=== PATIENT | female | born 1930 | race Caucasian/White ===

== ENCOUNTER 2017-01-21 05:13 | Inpatient (IN) | payer OTHER, MEDICARE ==
[2017-01-06 13:08] LABS: URINE BILIRUBIN NEGATIVE (Negative); URINE BLOOD NEGATIVE (Negative); URINE COLOR YELLOW; URINE GLUCOSE-RANDOM* NEGATIVE (Negative); URINE KETONES NEGATIVE (Negative); URINE LEUKOCYTES-REFLEX NEGATIVE (Negative); URINE PROTEIN (DIPSTICK) NEGATIVE (Negative)
[2017-01-06 13:09] LABS: HEMATOCRIT 38.7 % (37.0-47.0); HEMOGLOBIN 12.6 gm/dL (12.0-15.0); MCH 26.4 pg (26.0-34.0); MCHC 32.6 g/dL (28.0-37.0); MCV 81.1 fL (80.0-100.0); RBC 4.77 mil/uL (4.20-5.00); RDW 14.5 % (10.5-14.5); WBC 10.4 thou/uL (4.0-11.0)
[2017-01-06 13:22] LABS: ALBUMIN 3.9 g/dL (3.4-5.0); CALCIUM 9.2 mg/dL (8.5-10.1); CREATININE 1.2 mg/dL (0.6-1.3); POTASSIUM 3.7 mmol/L (3.5-5.1); PROTIME 10.5 Seconds (9.3-11.4)
[2017-01-21] VITALS (8 sets, daily range): BP systolic 104–147; BP diastolic 45–84
[~2017-01-21] VITALS: Ht 165.1 cm; Wt 76.7 kg
--- NOTE | ~2017-01-21 | HC ---
[facility] [address] [place] [address] CONSULTATION Name: VIRGINIA FONSECA Room #: 545-P ADM IN M.R.#: [id number] Admission: 01/21/17 Attend Phys: Joaquin Rainey MD Discharge: Date of : 30 Report #: [id number] THIS REPORT FOR: //name// CC: Naren Rainey DATE OF SERVICE: 01/21/2017 CHIEF COMPLAINT: Status post left total knee replacement. REASON FOR CONSULTATION: Medical management. REQUESTING PHYSICIAN: Joaquin Rainey M.D. 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 She presented today for elective left knee replacement. This was done this morning by Dr. Joaquin Rainey, without complications. She has done well in her immediate postoperative course. She has no complaints of shortness of breath or vomiting. She had some nausea that has resolved. She has no other new concerns. PAST MEDICAL HISTORY: Significant for colon polyps, ischemic colitis, pneumonia, hypertension, GERD, constipation and gout. PAST SURGICAL HISTORY: CHRISTIANO and BSO at age 30, bilateral cataract repairs and cystocele and rectocele repairs. SOCIAL HISTORY: She is retired. She is a . She has a distant smoking history. She rarely drinks alcohol. She gets little exercise due to degenerative joint disease. FAMILY HISTORY: Sister had lung cancer. MEDICATIONS: On admission include MiraLax, omeprazole, lovastatin, triamterene/hydrochlorothiazide, allopurinol, aspirin, potassium chloride and Lasix. MEDICATIONS ALLERGIES: None. REVIEW OF SYSTEMS: Negative, except as per HPI. PHYSICAL EXAMINATION: GENERAL: In general, she is a well-nourished white female, resting comfortably in hospital bed. She reports mild nausea. VITAL SIGNS: Stable. HEENT: Grossly unremarkable. [facility] [address] [place] [address] CONSULTATION Name: VIRGINIA FONSECA Room #: 545-P [facility] IN ..#: [id number] Admission: 01/21/17 Attend Phys: Joaquin Rainey MD Discharge: Date of : 30 Report #: [id number] NECK: Supple. CHEST: Clear. HEART: Regular. ABDOMEN: Soft. SKIN EXAMINATION: Negative. EXTREMITIES: Show left leg with surgical wrapping. ASSESSMENT: 1. Status post left total knee . 2. Gastroesophageal reflux disease. 3. Hypertension. 4. Constipation. 5. Gout. PLAN: Continue routine postoperative care. Continue home medications. I will continue to follow. <ELECTRONICALLY SIGNED> By: Naren Rao MD 01/22/17 0710 [id number] Naren Rao MD /nt
--- NOTE | ~2017-01-21 | O ---
[facility] [place] [address] OPERATIVE REPORT Name: VIRGINIA FONSECA Room #: 545-P ADM IN M.R.#: [id number] Admission: 01/21/17 Attend Phys: Joaquin Rainey MD Discharge: Date of : 30 Report #: [id number] THIS REPORT FOR: //name// CC: Naren Rainey DATE OF SERVICE: 01/21/2017 PREOPERATIVE DIAGNOSIS: Left knee degenerative joint disease, severe. POSTOPERATIVE DIAGNOSIS: Left knee degenerative joint disease, severe. PROCEDURE: Left total knee arthroplasty. SURGEON: Joaquin Rainey MD. ASSEMBLER FOR PULLER OVER MACHINE: uBddy Lopez, nurse practitioner. INDICATIONS FOR ASSEMBLER FOR PULLER OVER MACHINE: During the course of operation, extensive manipulation, retraction, and limb positioning was required. This was afforded to me by my commercial lines assistant. ANESTHESIA: General. INDICATIONS: See hospital H and P revisions, 01/21/2017. IMPLANTS UTILIZED: We used a DePuy PFC knee system. We used a size 3 femur press-fit cruciate-retaining, size 2.5 tibial tray, with fixed bearing 10 mm insert, and a 41 mm oval dome patella. DESCRIPTION OF PROCEDURE: After adequate general anesthesia had been obtained, the patient's left lower extremity was prepped and draped in the usual meticulous sterile fashion. Limb was exsanguinated with gravity. Tourniquet was inflated to 350 torr. An anterior midline incision was made, subQ divided sharply. Hemostasis was obtained with electrocautery. Medial parapatellar incision was made. Infrapatellar fat pad excised. Medial release performed. The drill was used to drill the distal femur. This hole was enlarged, irrigated, suctioned, and the intramedullary guide placed the full length of the femur. Distal femoral cutting guide pinned to appropriate height, distal femoral cut was made. The measuring device determined the size 3 as appropriate size for this patient. The distal femur was marked, cutting guide impacted in to place, and the anterior, posterior, and chamfer cuts were made. Rongeur was used to remove additional osteophytes. At this time, the ACL was transected, tibia translated anteriorly, menisci were [facility] [address] [place] [address] OPERATIVE REPORT Name: VIRGINIA FONSECA Lisandro Room #: 545-P ADM IN M.R.#: [id number] Admission: 01/21/17 Attend Phys: Joaquin Rainey MD Discharge: Date of : 30 Report #: [id number] excised. A drill was used to drill the central portion of the tibia. This hole was enlarged, irrigated, suctioned, and the intramedullary guide placed the full length of tibia. Proximal tibial cutting guide placed at appropriate height. Proximal tibia cut was made. 2.5 tray gave us the best coverage on the tibia. Trial components were put in position. With the 10 spacer, she had the best flexion and extension gap. Patella was then measured, cutting guide clamped into place, patellar cut was made. A 41 template gave us the best coverage. Pedicles were drilled, trial component put in position. Patella tracked normally. At this time, the knee was taken through several cycles of flexion and extension. Tibial tray rotation marked. Distal femur drilled. Trial components were removed. Tibial keel cuts were made. The knee was irrigated with both pulse lavage and antibiotic irrigation. The cement was vacuum mixed, and when it reached the appropriate consistency, the knee was thoroughly dried, the tibial tray was cemented in to place. Excess cement was removed. The polyethylene was impacted in to place, and the femur impacted in to place, and the knee was taken out to 30 degrees of flexion with uniform compression placed across the components. Patellar button was then cemented into place and again excess cement was removed. Irrigation was placed in the wound, and allowed to rest in the wound until the cement fully cured. When it had done so, the knee was irrigated, dried thoroughly, and inspected. Drains were placed superolaterally, both deep and superficial. Retinacular layer closed with combination of inverted [id number]-gq-smeis #1 Vicryl, as well as running #1 Tevdek. SubQ closed with 2-0 Monocryl, skin closed with mary ann. Sterile compressive dressing was applied. Tourniquet deflated. By: [id number] Joaquin Rainey MD /nt
[~2017-01-21 05:13] MED LIST: ALLOPURINOL 10100 M1 PO; ASPIR 8181 MG PO; KLOR-CON 1010 MEQ PO; LASIX 20 MG TAB20 MG PO; LOVASTATIN 20 M20 MG PO; MIRALAX17 GM PO; OMEPRAZOLE 20 M20 M1 PO; TRIAMTERENE-HC1 EAC3 PO
[2017-01-22 04:00] VITALS: BP 110/55
[2017-01-22 05:40] LABS: HEMATOCRIT 31.1 % (37.0-47.0); HEMOGLOBIN 10.1 gm/dL (12.0-15.0); MCH 25.9 pg (26.0-34.0); MCHC 32.5 g/dL (28.0-37.0); MCV 79.7 fL (80.0-100.0); RBC 3.9 mil/uL (4.20-5.00); RDW 14.9 % (10.5-14.5); WBC 14.4 thou/uL (4.0-11.0)
[2017-01-22 08:58] VITALS: BP 102/40
[2017-01-22 15:41] VITALS: BP 113/47
[2017-01-22 20:00] VITALS: BP 118/49
[2017-01-23 03:00] VITALS: BP 113/47
[2017-01-23 05:21] LABS: HEMATOCRIT 30.6 % (37.0-47.0); HEMOGLOBIN 9.9 gm/dL (12.0-15.0); MCH 25.8 pg (26.0-34.0); MCHC 32.3 g/dL (28.0-37.0); MCV 79.8 fL (80.0-100.0); RBC 3.83 mil/uL (4.20-5.00); RDW 15.1 % (10.5-14.5); WBC 12.1 thou/uL (4.0-11.0)
[2017-01-23 06:20] VITALS: BP 116/58
[2017-01-23 07:45] VITALS: BP 109/52
[2017-01-23 15:45] VITALS: BP 107/45
[2017-01-23 19:21] VITALS: BP 112/58
[2017-01-24 03:20] VITALS: BP 125/58
[2017-01-24 06:23] LABS: HEMATOCRIT 28.5 % (37.0-47.0); HEMOGLOBIN 9.4 gm/dL (12.0-15.0); MCH 25.9 pg (26.0-34.0); MCHC 32.8 g/dL (28.0-37.0); RBC 3.61 mil/uL (4.20-5.00); RDW 15.2 % (10.5-14.5); WBC 12.9 thou/uL (4.0-11.0)
[2017-01-24 07:32] VITALS: BP 119/72
[2017-01-24] MEDS ORDERED: HYDROCODONE-APA1 TA1 PO (08:30)
[2017-01-24] MEDS ORDERED: XARELTO10 MG PO (08:31)
[2017-01-24 15:26] VITALS: BP 119/72
[2017-01-24 16:16] VITALS: BP 117/40
== END 2017-01-24 18:50 | disposition home health service (06) | DRG 470 ==
LOC: 5S 05:13 → TBA 05:13 → 5S 10:18 → PRE 11:59 → 5S 01-24 18:50
PROVIDERS: Orthopaedic Surgery
PROC: 0SRD0J9 Replacement of Left Knee Joint with Synthetic Substitute, Cemented, Open Approach (ICD-10-PCS; principal; 2017-01-21)
DX: M17.12 Unilateral primary osteoarthritis, left knee (principal); I10 Essential (primary) hypertension; K21.9 Gastro-esophageal reflux disease without esophagitis; K59.00 Constipation, unspecified; M10.9 Gout, unspecified; Z86.010 Personal history of colon polyps; Z87.01 Personal history of pneumonia (recurrent); Z90.710 Acquired absence of both cervix and uterus; Z90.722 Acquired absence of ovaries, bilateral; Z98.42 Cataract extraction status, left eye; Z98.41 Cataract extraction status, right eye; Z87.891 Personal history of nicotine dependence; Z80.1 Family history of malignant neoplasm of trachea, bronchus and lung
CPT/HCPCS: 10785; 50010; 50101; 50415; 50612; 50954; 51130; 51225; 51320; 51412; 51771; 52001; 52282; 53000; 53078; 53364; 56525; 56527; 62110; 62900; 70005

== ENCOUNTER 2017-06-10 05:18 | Inpatient (IN) | payer OTHER, MEDICARE ==
[2017-06-02 13:03] LABS: HEMATOCRIT 34.8 % (37.0-47.0); HEMOGLOBIN 11.1 gm/dL (12.0-15.0); MCH 23.5 pg (26.0-34.0); MCHC 31.9 g/dL (28.0-37.0); MCV 73.7 fL (80.0-100.0); RBC 4.71 mil/uL (4.20-5.00); RDW 19.2 % (10.5-14.5); WBC 9.3 thou/uL (4.0-11.0)
[2017-06-02 13:06] LABS: URINE BILIRUBIN NEGATIVE (Negative); URINE BLOOD NEGATIVE (Negative); URINE COLOR YELLOW; URINE GLUCOSE-RANDOM* NEGATIVE (Negative); URINE KETONES NEGATIVE (Negative); URINE LEUKOCYTES-REFLEX NEGATIVE (Negative); URINE PROTEIN (DIPSTICK) NEGATIVE (Negative); URINE UROBILINOGEN 0.2 E.U./dl (0.2-1.0)
[2017-06-02 13:20] LABS: PROTIME 10.1 Seconds (9.3-11.4)
[2017-06-02 13:31] LABS: ALBUMIN 3.7 g/dL (3.4-5.0); CALCIUM 9.1 mg/dL (8.5-10.1); CREATININE 1.2 mg/dL (0.6-1.0); POTASSIUM 3.5 mmol/L (3.5-5.1)
[~2017-06-10] VITALS: Ht 165.1 cm; Wt 76.2 kg
[2017-06-10] VITALS (8 sets, daily range): BP systolic 112–144; BP diastolic 52–70
--- NOTE | ~2017-06-10 | H ---
[facility] [address] [place] [address] HISTORY AND PHYSICAL Name: VIRGINIA FONSECA Room #: 404-P ADM IN M.R.#: [id number] Admission: 06/10/17 Attend Phys: Joaquin Rainey MD Discharge: Date of : 30 Report #: [id number] THIS REPORT FOR: //name// CC: Naren Rainey DATE OF SERVICE: 06/10/2017 REASON FOR CONSULTATION: Medical management. HISTORY OF PRESENT ILLNESS: The patient is an 86-year-old white female who presented today for elective right knee replacement surgery for severe degenerative arthritis. Preoperative workup was unremarkable. Surgery went well and the immediate postop period was unremarkable. She is resting comfortably in her hospital bed at this time. Pain is controlled with local block. She has no specific new concerns. PAST MEDICAL HISTORY: Significant for hypertension, hypercholesterolemia, GERD, constipation, gout, anemia, degenerative joint disease, chronic kidney disease, colonic polyps, ischemic colitis. PAST SURGICAL HISTORY: She had CHRISTIANO/BSO, cystocele and rectocele repairs, bilateral cataract replacements and previous left total knee replacement. SOCIAL HISTORY: She is retired. She is a . She has a distant smoking history. She drinks minimal alcohol. Uses no illegal drugs. FAMILY HISTORY: Father , homicide. Mother , drowning. Sister with lung cancer. MEDICATIONS ON ADMISSION: Include Lasix twice weekly, potassium chloride twice weekly, aspirin, allopurinol, triamterene/hydrochlorothiazide, lovastatin, omeprazole and MiraLax. ALLERGIES: CIPROFLOXACIN, which causes GI side effects. REVIEW OF SYSTEMS: Unremarkable. PHYSICAL EXAMINATION: GENERAL: She is an elderly white female resting comfortably in her hospital bed. VITAL SIGNS: She is afebrile. Blood pressure 140/76, pulse 84, respiratory rate 12. HEENT: Grossly unremarkable. NECK: Supple without bruit or JVD. LUNGS: Chest is clear to auscultation. [facility] [address] [place] [address] HISTORY AND PHYSICAL Name: VIRGINIA FONSECA Room #: 404-P [facility] IN [facility].#: [id number] Admission: 06/10/17 Attend Phys: Joaquin Rainey MD Discharge: Date of : 30 Report #: [id number] HEART: Regular, without murmur or gallop. ABDOMEN: Soft and nontender with normoactive bowel sounds and no palpable masses. GENITOURINARY AND RECTAL: Deferred. EXTREMITIES: Left lower extremity shows trace edema. Right knee is wrapped postoperatively. SKIN: Unremarkable. NEUROLOGIC: Grossly intact. LABORATORY DATA: Preop EKG was unremarkable. ASSESSMENT: 1. Status post right knee replacement. 2. Hypertension. 3. Hypercholesterolemia. 4. Gastroesophageal reflux disease. 5. Constipation. PLAN: We will resume her home medications with the exception of Lasix. Plan routine postoperative care. I would suggest inpatient rehabilitation upon discharge. <ELECTRONICALLY SIGNED> By: Naren Rao MD 06/11/17 0656 [id number] [id number] Naren Rao MD /cher
--- NOTE | ~2017-06-10 | O ---
[facility] [place] [address] OPERATIVE REPORT Name: VIRGINIA FONSECA Room #: 150-1 ADM IN M.R.#: [id number] Admission: 06/10/17 Attend Phys: Joaquin Rainey MD Discharge: Date of : 30 Report #: [id number] THIS REPORT FOR: //name// CC: MIRELLA Rainey PREOPERATIVE DIAGNOSIS: Right knee degenerative joint disease, severe. POSTOPERATIVE DIAGNOSIS: Right knee degenerative joint disease, severe. PROCEDURE: Right total knee arthroplasty. SURGEON: Joaquin Baker MD BENCH HAND: JENNI Phillips ANESTHETIC: General. INDICATIONS: See hospital H and P. IMPLANTS UTILIZED: Used a DePuy PFC knee system. Used a cruciate retaining femoral component press fit size 3, size 2.5 tibial tray with a 12.5 mm insert and a 38 mm oval dome patella. DESCRIPTION OF PROCEDURE: After adequate general anesthesia had been obtained, the patient's right lower extremity was prepped and draped in the usual meticulous sterile fashion. Limb was exsanguinated with gravity, tourniquet inflated to 350 torr. Anterior midline incision was made, subQ divided sharply. Hemostasis obtained with electrocautery. Medial parapatellar incision was made. Infrapatellar fat pad excised. Medial release performed. The drill was used to drill the distal femur. This hole was enlarged, irrigated, suctioned, and the intramedullary guide placed to the full length of the femur. The distal femoral cutting guide pinned to appropriate height, distal femoral cut was made. We used a measuring device to determine that the size 3 was appropriate size for the patient. The distal femur was then marked, the cutting guide impacted in place and the anterior, posterior and chamfer cuts were made. Rongeur was used to remove additional osteophytes. At this time, the ACL was transected, tibia translated anteriorly, menisci were excised. Drill was used to drill central portion of the tibia. This hole was enlarged, irrigated, suctioned, and the intramedullary guide placed to the full length of the tibia. The proximal tibial cutting guide was placed at appropriate height. Proximal tibia cut was made. 2.5 tray gave us the best coverage of the tibia. The trial components in position with a 12.5 spacer, she had the best flexion and extension gap. Patella tracked normally. [address] [address] OPERATIVE REPORT Name: VIRGINIA FONSECA Room #: 150-1 [facility] IN M.R.#: [id number] Admission: 06/10/17 Attend Phys: Joaquin Rainey MD Discharge: Date of : 30 Report #: [id number] At this time, patella was measured, cutting guide clamped into place, patellar cut was made. 38 template gave us the best coverage. Pedicles were drilled, trial component put in position. It tracked normally. At this time, the knee was taken through several cycles of flexion and extension. The tibial tray rotation marked, distal femur drilled. Trial components were removed. Tibial keel cuts were made. We irrigated the knee with both pulse lavage and antibiotic irrigation. Bone plugs were placed proximal tibia and distal femur. The cement was vacuum mixed and when it reached the appropriate consistency, the knee was thoroughly dried, the tibial tray was cemented in place. Excess cement was removed. The polyethylene was impacted in place and the femur impacted in place and the knee was taken out to 30 degrees of flexion with uniform compression placed across components. Patellar button was then cemented into place and again excess cement was removed. Irrigation was placed in the wound and allowed to rest in the wound until the cement fully cured. When it had done so, the knee was irrigated, dried thoroughly, and inspected. Drains were placed superolaterally both deep and superficial. The retinacular layer closed with combination of interrupted [id number] #1 Vicryl as well as running #1 Tevdek. SubQ closed with 2-0 Monocryl, skin closed with mary ann. Sterile compressive dressing was complied. Tourniquet deflated. By: [id number] Joaquin Rainey MD /cher
[~2017-06-10 05:18] MED LIST changes: +APAP500 PO; +HYDROCODONE-APA1 TA1 PO; +IBUPROFEN 200200 M1 PO; +LOVASTATIN40 MG PO; +XARELTO10 MG PO
[2017-06-10] MEDS ORDERED: PRILOSEC 20 MG20 MG PO (12:38)
[2017-06-11] VITALS: BP 115/45
[2017-06-11 04:00] VITALS: BP 120/45
[2017-06-11 05:53] LABS: HEMATOCRIT 29.9 % (37.0-47.0); HEMOGLOBIN 9.5 gm/dL (12.0-15.0); MCH 23.6 pg (26.0-34.0); MCHC 31.6 g/dL (28.0-37.0); MCV 74.6 fL (80.0-100.0); RBC 4.01 mil/uL (4.20-5.00); RDW 18.9 % (10.5-14.5); WBC 11.9 thou/uL (4.0-11.0)
[2017-06-11 08:00] VITALS: BP 114/42
[2017-06-11 08:10] VITALS: BP 114/42
[2017-06-11 20:00] VITALS: BP 126/47
[2017-06-12 04:18] LABS: HEMATOCRIT 27.9 % (37.0-47.0); HEMOGLOBIN 8.8 gm/dL (12.0-15.0); MCH 23.9 pg (26.0-34.0); MCHC 31.5 g/dL (28.0-37.0); RBC 3.68 mil/uL (4.20-5.00); RDW 18.9 % (10.5-14.5)
[2017-06-12 04:37] VITALS: BP 113/49
[2017-06-12 07:10] VITALS: BP 104/52
[2017-06-12 11:09] LABS: URINE BILIRUBIN NEGATIVE (Negative); URINE BLOOD TRACE (Negative); URINE COLOR YELLOW; URINE GLUCOSE-RANDOM* NEGATIVE (Negative); URINE KETONES NEGATIVE (Negative); URINE NITRITE NEGATIVE (Negative); URINE PROTEIN (DIPSTICK) TRACE (Negative); URINE SPECIFIC GRAVITY 1.015 (1.003-1.035); URINE UROBILINOGEN 0.2 E.U./dl (0.2-1.0)
[2017-06-12 15:13] VITALS: BP 109/49
[2017-06-12 19:14] VITALS: BP 122/47
[2017-06-13 01:43] LABS: URINE BILIRUBIN NEGATIVE (Negative); URINE BLOOD TRACE (Negative); URINE COLOR YELLOW; URINE GLUCOSE-RANDOM* NEGATIVE (Negative); URINE KETONES NEGATIVE (Negative); URINE LEUKOCYTES-REFLEX NEGATIVE (Negative); URINE PROTEIN (DIPSTICK) NEGATIVE (Negative); URINE SPECIFIC GRAVITY 1.015 (1.003-1.035); URINE UROBILINOGEN 0.2 E.U./dl (0.2-1.0)
[2017-06-13 03:11] VITALS: BP 121/66
[2017-06-13 04:11] LABS: HEMATOCRIT 28.7 % (37.0-47.0); HEMOGLOBIN 8.9 gm/dL (12.0-15.0); MCH 23.4 pg (26.0-34.0); MCHC 31.1 g/dL (28.0-37.0); MCV 75.3 fL (80.0-100.0); RBC 3.82 mil/uL (4.20-5.00); RDW 19.5 % (10.5-14.5); WBC 12.2 thou/uL (4.0-11.0)
[2017-06-13] MEDS ORDERED: HYDROCODONE-APA1 TA1 PO (06:53)
[2017-06-13] MEDS ORDERED: XARELTO10 MG PO (06:53)
[2017-06-13 07:49] VITALS: BP 116/47
[2017-06-13] MEDS ORDERED: LASIX 20 MG TAB20 MG PO (09:40)
[2017-06-13] MEDS ORDERED: AZITHROMYCIN 2250 MG PO (12:31)
== END 2017-06-13 13:37 | DRG 470 ==
LOC: 4N 05:18 → TBA 05:18 → PRE 06:10 → 4N 11:28 → PRE 12:09 → 4N 06-13 13:37
PROVIDERS: Orthopaedic Surgery; Physician Assistant
PROC: 0SRC0J9 Replacement of Right Knee Joint with Synthetic Substitute, Cemented, Open Approach (ICD-10-PCS; principal; 2017-06-10)
DX: M17.11 Unilateral primary osteoarthritis, right knee (principal); E78.00 Pure hypercholesterolemia, unspecified; K21.9 Gastro-esophageal reflux disease without esophagitis; M19.90 Unspecified osteoarthritis, unspecified site; I12.9 Hypertensive chronic kidney disease with stage 1 through stage 4 chronic kidney disease, or unspecified chronic kidney disease; N18.9 Chronic kidney disease, unspecified; K59.00 Constipation, unspecified; M10.9 Gout, unspecified; Z96.652 Presence of left artificial knee joint; R39.15 Urgency of urination; R33.9 Retention of urine, unspecified; Z86.010 Personal history of colon polyps; Z98.42 Cataract extraction status, left eye; Z98.41 Cataract extraction status, right eye; Z88.1 Allergy status to other antibiotic agents; Z87.891 Personal history of nicotine dependence; Z85.118 Personal history of other malignant neoplasm of bronchus and lung; Z79.82 Long term (current) use of aspirin; Z79.899 Other long term (current) drug therapy
CPT/HCPCS: 10790; 50010; 50101; 50415; 50612; 50954; 51130; 51225; 51320; 51412; 51771; 52001; 52282; 53000; 53078; 53364; 56525; 56527; 62110; 62900; 64042; 64043; 70005